=== PATIENT | female | born 1985 | race African-American/Black ===

== ENCOUNTER 2017-02-13 09:01 | Emergency (ER) | payer OTHER ==
[2017-02-13 09:05] VITALS: BP 140/81; PULSE 86; TEMP 97.8; BMI 32.5
--- NOTE | 2017-02-13 09:36 | PDOC ---
History of Present Illness - General Chief Complaint: Ear Problem Stated Complaint: EAR INFECTION Time Seen by Provider: 02/13/17 09:21 History Source: Patient Exam Limitations: No Limitations - History of Present Illness Initial Comments: 02/13/17 09:30 31 yr female history of asthma c/o right ear pain, nasal congestion for one week. no fever or chills, no trauma to the ear. 02/13/17 11:47 Past History - Past Medical History Allergies/Adverse Reactions: Allergies Allergy/AdvReac Type Severity Reaction Status Date / Time Penicillins Allergy Verified 02/13/17 09:05 Home Medications: Ambulatory Orders Azithromycin [Zithromax 250mg Tablets -] 250 mg PO UTDICT #6 tab 02/13/17 Fluticasone Prop 0.05% Nasal [Flonase -] 1 - 2 spray NS DAILY #1 spray.pump Asthma: Yes - Family Disease History Comment:: 02/13/17 09:31 none - Psycho/Social/Smoking Cessation Hx Suicidal Ideation: No Smoking History: Never smoked Information on smoking cessation initiated: No Hx Alcohol Use: No Drug/Substance Use Hx: No Substance Use Type: None Review of Systems - Review of Systems Able to Perform ROS?: Yes Is the patient limited Macedonian proficient: No Constitutional: No: Symptoms Reported HEENTM: Yes: See HPI, Ear Pain, Nose Congestion *Physical Exam - Vital Signs Last Vital Signs Temp Pulse Resp BP Pulse Ox 97.8 F 86 17 140/81 99 02/13/17 09:04 02/13/17 09:04 02/13/17 09:04 02/13/17 09:04 02/13/17 09:04 - Physical Exam General Appearance: Yes: Nourished, Appropriately Dressed HEENT: positive: EOMI, SEBASTIAN, Nasal Congestion, TM Bulging, TM Dull (right), TM Erythema, Other (post nasal drip) Neck: positive: Supple Respiratory/Chest: positive: Lungs Clear, Normal Breath Sounds Cardiovascular: positive: Regular Rhythm, Regular Rate Extremity: positive: Normal Inspection, Normal Range of Motion Integumentary: positive: Normal Color, Dry, Warm Neurologic: positive: Fully Oriented, Alert, Normal Mood/Affect, Normal Response , Motor Strength 5/5 Medical Decision Making - Medical Decision Making 02/13/17 09:32 cc: right ear pain nasal congestion post nasal drip no fever non toxic will treat for allergic rhinitis, AOM right ear 02/13/17 11:48 *DC/Admit/Observation/Transfer Diagnosis at time of Disposition: Allergic rhinitis Qualifiers: Allergic rhinitis trigger: unspecified Allergic rhinitis seasonality: seasonal Qualified Code(s): J30.2 - Other seasonal allergic rhinitis Acute otitis media Qualifiers: Otitis media type: suppurative Laterality: right Recurrence: not specified as recurrent Spontaneous tympanic membrane rupture: without spontaneous rupture Qualified Code(s): H66.001 - Acute suppurative otitis media without spontaneous rupture of ear drum, right ear - Discharge Dispostion Disposition: HOME Condition at time of disposition: Good - Prescriptions Prescriptions: Fluticasone Prop 0.05% Nasal [Flonase -] 1 - 2 spray NS DAILY #1 spray.pump Azithromycin [Zithromax 250mg Tablets -] 250 mg PO UTDICT #6 tab - Referrals Referrals: STAFF,NOT ON [Primary Care Provider] - Shad Salas MD [Staff Physician] - - Patient Instructions Additional Instructions: use the Flonase nasal spray as directed take the prescribed antibiotic as directed take advil or motrin (over the counter) for pain follow with the ENT for any worsening symptoms
== END 2017-02-13 09:41 | disposition home or self-care (01) ==
LOC: JERFT 09:01
DX: H66.001 Acute suppurative otitis media without spontaneous rupture of ear drum, right ear (principal); J30.2 Other seasonal allergic rhinitis
CPT/HCPCS: 99281-25

== ENCOUNTER 2017-03-02 08:54 | Emergency (ER) | payer OTHER ==
[2017-03-02 08:58] VITALS: BP 152/57; PULSE 96; TEMP 98.6; BMI 33.5
[2017-03-02] MEDS ORDERED: KETOROLAC TROMETHAMINE 30 MG/1 ML VIAL IM ONE (09:17)
[2017-03-02] MEDS ORDERED: KETOROLAC TROMETHAMINE 30 MG/1 ML VIAL ONE (09:19)
--- NOTE | 2017-03-02 09:29 | PDOC ---
[id number] RT ARM PAIN Time Seen by Provider: 03/02/17 09:04 - History of Present Illness Initial Comments: 03/02/17 09:18 CHIEF COMPLAINT: right shoulder pain HISTORY OF PRESENT ILLNESS: 31 yo F with hx of asthma presents to [facility] with pain to R shoulder x 2 days. Patient states "I always have problems with my shoulder, like it will pop out or something. Now it's been bothering me the last two days." She denies any recent trauma or injury. PAST MEDICAL HISTORY: Denies past medical history FAMILY HISTORY: Denies SOCIAL HISTORY:Denies tobacco, alcohol, illicit drug use. SURGICAL HISTORY: Denies ALLERGIES: penicillin REVIEW OF SYSTEMS General/Constitutional: Denies fever or chills. Denies weakness, weight change. HEENT: Denies change in vision. Denies ear pain or discharge. Denies sore throat. Cardiovascular: Denies chest pain or shortness of breath. Respiratory: Denies cough, wheezing, or hemoptysis. Gastrointestinal: Denies nausea, vomiting, diarrhea or constipation. Denies rectal bleeding. Genitourinary: Denies dysuria, frequency, or change in urination. Musculoskeletal: Pain to R shoulder x 2 days. Skin and breasts: Denies rash or easy bruising. PHYSICAL EXAM General Appearance: Well-appearing, appropriately dressed. No apparent distress , no intoxication. HEENT: EOMI, PERRLA, normal ENT inspection, normal voice, TMs normal, pharynx normal. No conjunctival pallor. No photophobia, scleral icterus. Neck: Supple. Trachea midline. No tenderness, rigidity, carotid bruit, stridor , lymphadenopathy, or thyromegaly. Respiratory/Chest: Lungs CTAB. Cardiovascular: RRR. S1, S2. Musculoskeletal/Extremities: Positive Neer/Hawkin's/Empty can test. Normal inspection. FROM of all extremities, normal capillary refill. Pelvis Stable. No CVA tenderness. No tenderness to extremities, pedal edema, swelling, erythema or deformity. Integumentary: Appropriate color, dry, warm. No cyanosis, erythema, jaundice or rash Neurologic: watermaster II-XII intact. Fully oriented, alert. Appropriate mood/affect. Motor strength 5/5. No appreciable EOM palsy, facial droop or sensory deficit. Past History - Past Medical History Allergies/Adverse Reactions: Allergies Allergy/AdvReac Type Severity Reaction Status Date / Time Penicillins Allergy Verified 03/02/17 08:58 Home Medications: Ambulatory Orders Naproxen [Naprosyn -] 250 mg PO BID #14 tablet 03/02/17 Asthma: Yes Other medical history: SCOLIOSIS - Psycho/Social/Smoking Cessation Hx Suicidal Ideation: No Smoking History: Never smoked Hx Alcohol Use: No Drug/Substance Use Hx: No Substance Use Type: None *Physical Exam - Vital Signs Last Vital Signs Temp Pulse Resp BP Pulse Ox 98.6 F 96 H 20 152/57 99 03/02/17 08:55 03/02/17 08:55 03/02/17 08:55 03/02/17 08:55 03/02/17 08:55 Medical Decision Making - Medical Decision Making 03/02/17 11:49 31 yo F with presents to [facility] with R shoulder pain. Clinical presentation consistent with R shoulder impingement/rotator cuff injury. Advised patient to follow up with orthopedics within the next 3-4 days and to take medication as prescribed. Advised patient of signs and symptoms for return to ER; patient verbalized understanding and agrees to plan. *DC/Admit/Observation/Transfer Diagnosis at time of Disposition: Rotator cuff impingement syndrome of right shoulder - Discharge Dispostion Disposition: HOME Condition at time of disposition: Stable Admit: No - Prescriptions Prescriptions: Naproxen [Naprosyn -] 250 mg PO BID #14 tablet - Referrals Referrals: Rosy Chopra [Primary Care Provider] - - Patient Instructions Printed Discharge Instructions: DI for Rotator Cuff Injury Additional Instructions: As discussed, please take medication as prescribed and follow up with orthopedics for further evaluation of your shoulder pain. You may need an MRI and/or physical therapy or surgery. If you develop any fever, nausea, vomiting, ; or loss of sensation, numbness or tingling to your arm or fingers, please return to the ER.
== END 2017-03-02 09:40 | disposition home or self-care (01) ==
LOC: JERFT 08:54
PROC: 3E0233Z Introduction of Anti-inflammatory into Muscle, Percutaneous Approach (ICD-10-PCS; principal; 2017-03-02)
DX: M75.41 Impingement syndrome of right shoulder (principal); J45.909 Unspecified asthma, uncomplicated; M41.9 Scoliosis, unspecified
CPT/HCPCS: 96372; 99281-25

== ENCOUNTER 2017-08-11 07:33 | Emergency (ER) | payer OTHER ==
[2017-08-11 08:05] VITALS: BP 143/92; PULSE 83; TEMP 98.7; BMI 31.9
[2017-08-11] MEDS ORDERED: ALBUTEROL SO4 2.5/IPRATROPIUM 0.5 INH SOL 3 ML VIAL.NEB. NEB ONE ×2 (08:40→08:54)
--- NOTE | 2017-08-11 09:00 | PDOC ---
History of Present Illness - General Chief Complaint: Ear Problem Stated Complaint: EAR PAIN Time Seen by Provider: 08/11/17 08:31 History Source: Patient Exam Limitations: No Limitations - History of Present Illness Initial Comments: 08/11/17 08:56 My chief complaint: Cough and slight shortness of breath, with right ear discomfort History of present illness: Patient is a 31-year-old female with a history of asthma here today with a productive cough of clear phlegm with slight shortness of breath and wheezing since 08/06/2017. Patient also has slight nasal congestion and right ear pain intermittently. Patient reports having one episode of vomiting. Pt. denies any recent travel, or sick contacts. Pt. denies any fever or chills. Timing/Duration: getting worse, intermittent Severity: moderate Associated Symptoms: reports: chest pain (when coughing only ), cough ( productive clear), nausea/vomiting (vomited last night ), shortness of breath ( intermittently ). denies: fever/chills Past History - Past Medical History Allergies/Adverse Reactions: Allergies Allergy/AdvReac Type Severity Reaction Status Date / Time Penicillins Allergy Verified 08/11/17 08:04 Home Medications: Ambulatory Orders Albuterol 0.083% Nebulizer Nikki [Ventolin 0.083% Nebulizer Soln -] 1 neb NEB Q4H PRN #1 vial MDD 6 08/11/17 Albuterol Sulfate Inhaler - [Ventolin HFA Inhaler -] 2 inh PO Q4H PRN #1 inh Azithromycin [Zithromax 250mg Tablets -] 250 mg PO UTDICT #6 tab 08/11/17 Fluticasone/Salmeterol [Advair Hfa 115-21 Mcg Inhaler] 1 inh PO BID #1 inhaler MDD 2 08/11/17 Prednisone [Deltasone -] 20 mg PO BID #8 tablet 08/11/17 Asthma: Yes - Suicide/Smoking/Psychosocial Hx Smoking History: Never smoked Have you smoked in the past 12 months: No Information on smoking cessation initiated: No Hx Alcohol Use: No Drug/Substance Use Hx: No Substance Use Type: None Review of Systems - Review of Systems Able to Perform ROS?: Yes Constitutional: No: Symptoms Reported HEENTM: Yes: Ear Pain (rt. ), Throat Pain Respiratory: Yes: Shortness of Breath (intermittently ), Wheezing, Productive cough (clear) Cardiac (ROS): No: Symptoms Reported ABD/GI: Yes: Vomiting (once yesterday ) : No: Symptoms Reported Musculoskeletal: No: Symptoms Reported Integumentary: No: Symptoms Reported Neurological: No: Symptoms reported *Physical Exam - Vital Signs Last Vital Signs Temp Pulse Resp BP Pulse Ox 98.7 F 83 12 143/92 100 08/11/17 08:01 08/11/17 08:01 08/11/17 08:01 08/11/17 08:01 08/11/17 08:01 - Physical Exam General Appearance: Yes: Appropriately Dressed HEENT: positive: TMs Normal, Pharyngeal Erythema, Tonsillar Erythema (with no uvular deviation ), Nasal Congestion. negative: Tonsillar Exudate, Rhinorrhea, Sinus Tenderness Neck: negative: Lymphadenopathy (R), Lymphadenopathy (L) Respiratory/Chest: positive: Lungs Clear, Normal Breath Sounds. negative: Chest Tender, Respiratory Distress Cardiovascular: positive: Regular Rhythm, Regular Rate, S1, S2 Gastrointestinal/Abdominal: positive: Normal Bowel Sounds, Soft. negative: Tender, Organomegaly, Distended, Guarding, Rebound, Tenderness, Hepatomegaly, Spleenomegaly Integumentary: positive: Normal Color Neurologic: positive: Alert, Normal Response Medical Decision Making - Medical Decision Making 08/11/17 09:00 Patient is a 31-year-old female with a history of asthma here today with a productive cough of clear phlegm with slight shortness of breath and wheezing since 08/06/2017. Patient also has slight nasal congestion and right ear pain intermittently. Patient reports having one episode of vomiting. Pt. denies any recent travel, or sick contacts. Pt. denies any fever or chills. Asthmatic bronchitis PLAN: urine HCG NEGATIVE duoneb xray Chest XRay pa/LATERAL no infiltrate 08/11/17 09:01 08/11/17 09:37 PREDNISONE 40 MG PO NOW THAN 20 MG BID FOR FOLLOWING 4 DAYS AZITHRIOMAX 250 MG 2 TABS TODAY THAN ONE TAB DAILY FOR FOLLOWING 4 DAYS ADVAIR HFA 115/2 MCG ONE INHALE BID VENTOLIN HFA PUMP 2 PUFFS EVERY 4 HRS EVERY HRS PRN WHEEZING/SOB VENTOLIN 0.083% NEB EVERY 4 HRS PRN WHEEZING/SOB 08/11/17 09:41 WHEEZING DIFFUSE B/L IMPROVED BUT PERSIST WILL GIVE ANOTHER VENTOLIN 0.083% NEB NOW FEELS BETTER 08/11/17 09:59 feeling better 08/11/17 10:05 LUNGS B/L MINIMAL DIFFUSE WHEEZE FEELING MUCH BETTER *DC/Admit/Observation/Transfer Diagnosis at time of Disposition: Asthmatic bronchitis Qualifiers: Asthma severity: unspecified severity Asthma complication type: with acute exacerbation Qualified Code(s): J45.901 - Unspecified asthma with (acute) exacerbation - Discharge Dispostion Disposition: HOME Condition at time of disposition: Stable - Prescriptions Prescriptions: Fluticasone/Salmeterol [Advair Hfa 115-21 Mcg Inhaler] 1 inh PO BID #1 inhaler MDD 2 Prednisone [Deltasone -] 20 mg PO BID #8 tablet Albuterol 0.083% Nebulizer Nikki [Ventolin 0.083% Nebulizer Soln -] 1 neb NEB Q4H PRN #1 vial MDD 6 PRN Reason: Short Of Breath/Wheezing Albuterol Sulfate Inhaler - [Ventolin HFA Inhaler -] 2 inh PO Q4H PRN #1 inh PRN Reason: Short Of Breath/Wheezing Azithromycin [Zithromax 250mg Tablets -] 250 mg PO UTDICT #6 tab - Patient Instructions Additional Instructions: Follow up with your primary care provider within the next couple of days Rest and drink a lot a fluids Return to emergency room if symptoms worsen any difficulty breathing Patient voiced understanding of discharge instructions and all questions were answered And thank you for coming to [facility] emergency room for your medical needs today and is allowing us to serve you - Post Discharge Activity Forms/Work/School Notes: Back to Work
[2017-08-11] MEDS ORDERED: predniSONE 20 MG TABLET (UD) PO ONE (09:36)
[2017-08-11] MEDS ORDERED: predniSONE 20 MG TABLET (UD) ONE (09:38)
[2017-08-11] MEDS ORDERED: ALBUTEROL SO4 0.083% IH SOL 2.5 MG/3 ML VIAL.NEB. NEB ONE ×2 (09:40→09:41)
== END 2017-08-11 10:09 | disposition home or self-care (01) ==
LOC: JERFT 07:33
PROC: 3E0F7GC Introduction of Other Therapeutic Substance into Respiratory Tract, Via Natural or Artificial Opening (ICD-10-PCS; principal; 2017-08-11)
DX: J45.901 Unspecified asthma with (acute) exacerbation (principal)
CPT/HCPCS: 71020-TC; 84703; 87070; 87430; 99281-25

== ENCOUNTER 2018-09-10 12:36 | Emergency (ER) | payer OTHER ==
[2018-09-10 12:42] VITALS: BP 157/98; PULSE 73; TEMP 97.8; BMI 34.4
[2018-09-10] MEDS ORDERED: predniSONE 20 MG TABLET (UD) PO ONE (13:06)
[2018-09-10] MEDS ORDERED: predniSONE 20 MG TABLET (UD) ONE (13:09)
[2018-09-10] MEDS ORDERED: ALBUTEROL SO4 2.5/IPRATROPIUM 0.5 INH SOL 3 ML VIAL.NEB. NEB ONE (13:09)
--- NOTE | 2018-09-10 13:13 | PDOC ---
History of Present Illness - General Chief Complaint: Asthma Stated Complaint: COUGH Time Seen by Provider: 09/10/18 12:56 History Source: Patient Exam Limitations: No Limitations - History of Present Illness Initial Comments: 09/10/18 13:07 HISTORY OF PRESENT ILLNESS: Social 33-year-old woman past medical history of mild intermittent asthma who presents emergency Department with 1 week of productive cough and audible wheezing. Patient has been taking her nebulizer treatment and inhaler but has run out and is requesting refills of these medications. Patient denies any chest pain or shortness of breath. She denies fevers, chills, abdominal pain, nausea, vomiting. No recent travel or sick contacts. PAST MEDICAL HISTORY: Asthma SURGICAL HISTORY: Denies ALLERGIES: No known drug allergies REVIEW OF SYSTEMS General/Constitutional: Denies fever or chills. Denies weakness, weight change. HEENT: Denies change in vision. Denies ear pain or discharge. Denies sore throat. Cardiovascular: Denies chest pain or shortness of breath. Respiratory: Dry productive cough with audible wheezing. Denies hemoptysis. Gastrointestinal: Denies nausea, vomiting, diarrhea or constipation. Denies rectal bleeding. Genitourinary: Denies dysuria, frequency, or change in urination. Musculoskeletal: Denies joint or muscle swelling or pain. Denies neck or back pain. Skin and breasts: Denies rash or easy bruising. Neurologic: Denies headache, vertigo, loss of consciousness, or loss of sensation. Psychiatric: Denies depression or anxiety. Endocrine: Denies increased thirst. Denies abnormal weight change. Hematologic/Lymphatic: Denies anemia, easy bleeding, or history of blood clots. Allergic/Immunologic: Denies hives or skin allergy. Denies latex allergy. PHYSICAL EXAM General Appearance: Well-appearing, appropriately dressed. No apparent distress , no intoxication. HEENT: EOMI, PERRLA, normal ENT inspection, normal voice, TMs normal, pharynx normal. No conjunctival pallor. No photophobia, scleral icterus. Neck: Supple. Trachea midline. No tenderness, rigidity, carotid bruit, stridor , lymphadenopathy, or thyromegaly. Respiratory/Chest: No shortness of breath, chest tenderness, respiratory distress, accessory muscle use. No crackles, rales, rhonchi, stridor, dullness. Scattered expiratory wheezes present. Cardiovascular: RRR. S1, S2. No JVD, murmur, bradycardia, tachycardia. Vascular Pulses: Dorsalis-Pedis (R): 2+, Dorsalis-Pedis (L): 2+ Gastrointestinal/Abdominal: Normal bowel sounds. Abdomen soft, non-distended. No tenderness or rebound tenderness. No organomegaly, pulsatile mass, guarding, hernia, hepatomegaly, splenomegaly. Lymphatic: No adenopathy, tenderness. Musculoskeletal/Extremities: Normal inspection. FROM of all extremities, normal capillary refill. Pelvis Stable. No CVA tenderness. No tenderness to extremities, pedal edema, swelling, erythema or deformity. Integumentary: Appropriate color, dry, warm. No cyanosis, erythema, jaundice or rash Neurologic: supervisor dials II-XII intact. Fully oriented, alert. Appropriate mood/affect. Motor strength 5/5. No appreciable EOM palsy, facial droop or sensory deficit. Past History - Past Medical History Allergies/Adverse Reactions: Allergies Allergy/AdvReac Type Severity Reaction Status Date / Time Penicillins Allergy Verified 09/10/18 12:42 Home Medications: Ambulatory Orders Albuterol 0.083% Nebulizer Nikki [Ventolin 0.083% Nebulizer Soln -] 1 neb NEB Q4H #90 vial 09/10/18 Albuterol Sulfate Inhaler - [Ventolin HFA Inhaler -] 1 - 2 inh PO Q4H #1 inhaler 09/10/18 Azithromycin [Zithromax 250mg Tablets -] 250 mg PO UTDICT #6 tab 09/10/18 Prednisone [Prednisone 50 MG TABLETS] 50 mg PO DAILY #4 tablet 09/10/18 Asthma: Yes COPD: No - Suicide/Smoking/Psychosocial Hx Smoking History: Never smoked Have you smoked in the past 12 months: No Information on smoking cessation initiated: No Hx Alcohol Use: No Drug/Substance Use Hx: No Substance Use Type: None *Physical Exam - Vital Signs Last Vital Signs Temp Pulse Resp BP Pulse Ox 97.8 F 73 18 157/98 100 09/10/18 12:39 09/10/18 12:39 09/10/18 12:39 09/10/18 12:39 09/10/18 12:39 Medical Decision Making - Medical Decision Making 09/10/18 13:13 A/P: 33-year-old woman with history of asthma with 1 week of productive cough and wheezing Scattered expiratory wheezes auscultated Respirations even and unlabored Speaking full sentences No history of intubations X-rays, steroids, DuoNeb's, reassess 09/10/18 14:25 X-rays as read by Dr. Valdovinos: No evidence of acute pulmonary disease. Repeat lung exam reveals clear lungs. I'll discharge the patient home with prescription for prednisone and azithromycin. Patient is requesting refill of her albuterol nebulizer solution as well as an albuterol MDI. I discussed the physical exam findings, ancillary test results and final diagnoses with the patient. I answered all of the patient's questions. The patient was satisfied with the care received and felt comfortable with the discharge plan and treatment plan. The patient will call their primary care physician within 24 hours to arrange follow-up and will return to the Emergency Department with any new, persistent or worsening symptoms. *DC/Admit/Observation/Transfer Diagnosis at time of Disposition: Asthmatic bronchitis Qualifiers: Asthma severity: mild Asthma persistence: intermittent Asthma complication type : uncomplicated Qualified Code(s): J45.20 - Mild intermittent asthma, uncomplicated - Discharge Dispostion Disposition: HOME Condition at time of disposition: Stable Decision to Admit order: No - Prescriptions Prescriptions: Albuterol 0.083% Nebulizer Nikki [Ventolin 0.083% Nebulizer Soln -] 1 neb NEB Q4H #90 vial Albuterol Sulfate Inhaler - [Ventolin HFA Inhaler -] 1 - 2 inh PO Q4H #1 inhaler Azithromycin [Zithromax 250mg Tablets -] 250 mg PO UTDICT #6 tab Prednisone [Prednisone 50 MG TABLETS] 50 mg PO DAILY #4 tablet - Referrals Referrals: Rosy Chopra [Primary Care Provider] - - Patient Instructions Additional Instructions: Rest, drink lots of fluids: Teas, water, soups, Pedialyte Saltwater gargles Steamy showers/seem to face break up mucus Avoid contact with others until fevers and cough resolved Lots of handwashing and good hygiene Continue [id number] medications for symptomatic relief Tylenol or Motrin for fever and pain Continue albuterol nebulizers every 4-6 hours for the next 2 days then as needed for continued cough Prednisone as directed until completed Azithromycin as directed. Followup with private physician in one to 2 days Return to emergency department / pediatric hospital for worsened symptoms, fevers, dehydration - Post Discharge Activity
[2018-09-10] MEDS: ALBUTEROL SO4 2.5/IPRATROPIUM 0.5 INH SOL 3 ML VIAL.NEB. NEB SCH ×2 (13:53→13:54)
== END 2018-09-10 14:31 | disposition home or self-care (01) ==
LOC: JERFT 12:36
PROC: 3E0F7GC Introduction of Other Therapeutic Substance into Respiratory Tract, Via Natural or Artificial Opening (ICD-10-PCS; principal; 2018-09-10)
DX: J45.20 Mild intermittent asthma, uncomplicated (principal); Z88.0 Allergy status to penicillin
CPT/HCPCS: 71046-TC-FY; 99281-25

== ENCOUNTER 2023-12-25 09:15 | Emergency (ER) | payer OTHER ==
[2023-12-25 09:23] VITALS: BP 149/107; PULSE 83; RESP 18; TEMP 98.5; BMI 34.0
== END 2023-12-25 10:11 | disposition home or self-care (01) ==
LOC: JER 09:15 → JERFT 09:15
DX: H66.001 Acute suppurative otitis media without spontaneous rupture of ear drum, right ear (principal); H92.01 Otalgia, right ear; R50.9 Fever, unspecified
CPT/HCPCS: 99283-25